=== PATIENT | male | born 1955 | race Caucasian/White ===

== ENCOUNTER → 2023-03-10 | Outpatient (CLI) | payer BC, MEDICARE ==
--- NOTE | 2023-03-11 20:28 | CTL ---
EXAMINATION TYPE: CT Low Dose Lung DATE OF EXAM ORDERED: 03/11/2023 HISTORY: Z12.2 Z87.891. Quit smoking 11 months ago, 40 pack year history. Lung cancer screening CT DLP: [address] CTDI: 2.6 mGy Automated exposure control for dose reduction was used. SCREENING VISIT: First screening visit COMPARISON: None TECHNIQUE: Low dose computed tomography scan was performed through the chest at 1 mm thick sections a nd reconstructed images in multiple planes at 1 mm and [address] DIAGNOSTIC QUALITY: Satisfactory FINDINGS: LUNG NODULES: Right midlung 2.2 mm nodule along the minor fissure favored represent an intrafissural lymph node. No clinically significant pulmonary nodules. LUNGS: COPD: Severity: Minimal Fibrosis: Severity: None Lymph nodes: None Other findings: None RIGHT PLEURAL SPACE: Effusion: None Calcification: None Thickening: None Pneumothorax: None LEFT PLEURAL SPACE: Effusion: None Calcification: None Thickening: None Pneumothorax: None HEART: Heart Size: Normal Coronary Calcification: Small Pericardial Effusion: None OTHER FINDINGS: Upper abdomen: None Bony thorax: No acute osseous abnormality. Mild degenerative changes of the thoracic spine. Supraclavicular region: None Other: None IMPRESSION: No clinically significant pulmonary nodules. CT LUNG RAD AND CT CHEST RECOMMENDATION: Lung-Rad 1 Negative: Continue annual screening with LDCT in 12 months. S Modifier (other clinically significant findings): None
== END | disposition home or self-care (01) ==
LOC: RADCTMAIN 13:56
PROVIDERS: ATTEND Family Medicine
DX: Z12.2 Encounter for screening for malignant neoplasm of respiratory organs (principal); Z87.891 Personal history of nicotine dependence
CPT/HCPCS: 71271

== ENCOUNTER 2024-05-13 03:59 | Emergency (ER) | payer BC, MEDICARE ==
[2024-05-13 04:15] VITALS: TEMP 97.7
--- NOTE | 2024-05-13 04:39 | ED ---
Abdominal Pain HPI <Gus Santana - Last Filed: 05/13/24 08:30> - General Source: patient, RN notes reviewed, old records reviewed Mode of arrival: ambulatory Limitations: no limitations - History of Present Illness MD Complaint: abdominal pain -: days(s) Location: diffuse Radiation: none Quality: cramping Consistency: constant Improves With: nothing, bowel movement <Gus Angel - Last Filed: 05/15/24 00:21> - General Chief Complaint: Abdominal Pain Stated Complaint: Abdominal Pain Time Seen by Provider: 05/13/24 04:03 - History of Present Illness Initial Comments: This is a 68-year-old male with positive abdominal pain positive nausea no vomiting, patient has had symptoms for a few days starting today also recently cramping if will clean with no prior history of significant abdominal pain, patient does have history of prostate, no abdominal surgeries. Patient was recently started on tadalafil thinks may be related to his abdominal pain (Gus Angel) - Related Data Allergies Allergy/AdvReac Type Severity Reaction Status Date / Time No Known Allergies Allergy Verified 05/13/24 04:15 Review of Systems ROS Other: All systems not noted in ROS Statement are negative. <Gus Santana - Last Filed: 05/13/24 08:30> ROS Other: All systems not noted in ROS Statement are negative. <Gus Angel - Last Filed: 05/15/24 00:21> ROS Statement: Those systems with pertinent positive or pertinent negative responses have been documented in the HPI. Past Medical History Past Medical History: No Reported History History of Any Multi-Drug Resistant Organisms: None Reported Past Surgical History: Joint Replacement Past Psychological History: No Psychological Hx Reported Smoking Status: Former smoker Past Alcohol Use History: None Reported Past Drug Use History: None Reported <Gus Angel - Last Filed: 05/15/24 00:21> General Exam Limitations: no limitations General appearance: alert, in no apparent distress, anxious Head exam: Present: atraumatic, normocephalic, normal inspection Eye exam: Present: normal appearance, PERRL, EOMI. Absent: scleral icterus, conjunctival injection, periorbital swelling ENT exam: Present: normal exam, mucous membranes moist Neck exam: Present: normal inspection. Absent: tenderness, meningismus, lymphadenopathy Respiratory exam: Present: normal lung sounds bilaterally. Absent: respiratory distress, wheezes, rales, rhonchi, stridor Cardiovascular Exam: Present: regular rate, normal rhythm, normal heart sounds. Absent: systolic murmur, diastolic murmur, rubs, gallop, clicks GI/Abdominal exam: Present: soft, normal bowel sounds. Absent: distended, tenderness, guarding, rebound, rigid Extremities exam: Present: normal inspection, full ROM, normal capillary refill. Absent: tenderness, pedal edema, joint swelling, calf tenderness Back exam: Present: normal inspection Neurological exam: Present: alert, oriented X3, CN II-XII intact Psychiatric exam: Present: normal affect, normal mood Skin exam: Present: warm, dry, intact, normal color. Absent: rash <Gus Angel - Last Filed: 05/15/24 00:21> Course <Gus Angel - Last Filed: 05/15/24 00:21> Vital Signs 05/13/24 05/13/24 04:12 08:53 Temperature 97.7 F Pulse Rate 78 76 Respiratory 16 17 Rate Blood Pressure 144/80 136/76 O2 Sat by Pulse 97 97 Oximetry - Reevaluation(s) Reevaluation #1: 05/13/24 04:32 Medical records reviewed (Gus Angel) Reevaluation #2: Symptoms improved here in the ER (Gus Angel) Reevaluation #3: Patient informed of results and questions answered (Gus Angel) Reevaluation #4: Was pt. sent in by a medical professional or institution (, PA, PRINCIPAL ASSOCIATE, urgent care, hospital, or assisted...) When possible be specific @ -no Did you speak to anyone other than the patient for history (EMS, parent, family, police, friend...)? What history was obtained from this source @ -no Did you review nursing and triage notes (agree or disagree)? Why? @ -agree Are old charts reviewed (outside hosp., previous admission, EMS record, old EKG, old radiological studies, urgent care reports/EKG's, assisted records)? Report findings @ -yes Differential Diagnosis (chest pain, altered mental status, abdominal pain women, abdominal pain men, vaginal bleeding, weakness, fever, dyspnea, syncope, headache, dizziness, GI bleed, back pain, seizure, CVA, palpatations, mental health, musculoskeletal)? @ -prior EKG interpreted by me (3pts min.). @ -yes X-rays interpreted by me (1pt min.). @ -no CT interpreted by me (1pt min.). @ -yes negative for acute disease U/S interpreted by me (1pt. min.). @ -yes negative for acute disease What testing was considered but not performed or refused? (CT, X-rays, U/S, labs)? Why? @ -none What meds were considered but not given or refused? Why? @ -none Did you discuss the management of the patient with other professionals (professionals i.e. , PA, PRINCIPAL ASSOCIATE, lab, RT, psych nurse, group social worker, arc and gas welder, teacher, fisheries technical officer, casey saw operator)? Give summary @ -no Was smoking cessation discussed for >3mins.? @ -no Was critical care preformed (if so, how long)? @ -no Were there social determinants of health that impacted care today? How? (Homelessness, low income, unemployed, alcoholism, drug addiction, tra nsportation, low edu. Level, literacy, decrease access to med. care, halfway, rehab)? @ -none Was there de-escalation of care discussed even if they declined (Discuss DNR or withdrawal of care, Hospice)? DNR status @ -no What co-morbidities impacted this encounter? (DM, HTN, Smoking, COPD, CAD, Cance r, CVA, ARF, Chemo, Hep., AIDS, mental health diagnosis, sleep apnea, morbid obesity)? @ -none Was patient admitted / discharged? Hospital course, mention meds given and route, prescriptions, significant lab abnormalities, going to OR and other pertinent info. @ - 68 male severe abdominal pain received started on tadalafil concern for that being the cause of his pain. Patient has persistent abdominal pain here in the emergency department but pain is improved. Patient will follow-up outpatien t surgery Discharge Undiagnosed new problem with uncertain prognosis? @ -no Drug Therapy requiring intensive monitoring for toxicity (Heparin, Nitro, Insulin, Cardizem)? @ -no Were any procedures done? @ -no Diagnosis/symptom? @ -Abdominal pain Acute, or Chronic, or Acute on Chronic? @ -Acute Uncomplicated (without systemic symptoms) or Complicated (systemic symptoms)? @ -Complicated Side effects of treatment? @ -no Exacerbation, Progression, or Severe Exacerbation? @ -exacerbation Poses a threat to life or bodily function? How? (Chest pain, [place], [place], pneumonia, PE, COPD, DKA, ARF, appy, cholecystitis, CVA, Diverticulitis, Homicidal, Suicidal, threat to staff... and all critical care pts) @ -no (Gus Angel) Reevaluation #5: Differential Abdominal Pain Men: Appendicitis, cholecystitis, diverticulosis, ischemic bowel, pancreatitis, h epatitis, UTI, gastroenteritis, AAA, incarcerated hernia, bowel obstruction, constipation, inflammatory bowel, hepatitis, peptic ulcer disease, splenic infarction, perforated viscus, testicular torsion, this is not meant to be an all-inclusive list (Gus Angel) Medical Decision Making - Lab Data Result diagrams: 05/13/24 04:47 05/13/24 04:47 <Gus Santana - Last Filed: 05/13/24 08:30> - Lab Data Result diagrams: 05/13/24 04:47 05/13/24 04:47 - Radiology Data Radiology results: report reviewed (CT abdomen pelvis negative for acute disease ultrasound positive for gallbladder disease), image reviewed <Gus Angel - Last Filed: 05/15/24 00:21> - Medical Decision Making Was patient admitted / discharged? Hospital course, mention meds given and route, prescriptions, significant lab abnormalities, going to OR and other pertinent info. @ -Patient was signed out to me by Dr. Angel at 7 AM. Patient's ultra sound was done interpreted by myself. Patient's ultrasound did show a slightly thickened gallbladder wall with cholelithiasis and patient also had a borderline common bile duct dilatation. I went into the room to reevaluate the patient he was pain-free I suggested he stay and get his gallbladder out because he said multiple of these episodes patient stated since he was pain-free he would rather wait because he already has an appointment to see Dr. Pacheco for colonoscopy. Patient was instructed to return if there is any further abdominal pain Undiagnosed new problem with uncertain prognosis? @ -No Drug Therapy requiring intensive monitoring for toxicity (Heparin, Nitro, Insulin, Cardizem)? @ -No Were any procedures done? @ -No Diagnosis/symptom? @ -Chronic cholecystitis, cholelithiasis Acute, or Chronic, or Acute on Chronic? @ -Acute Uncomplicated (without systemic symptoms) or Complicated (systemic symptoms)? @ -Complicated Side effects of treatment? @ -No Exacerbation, Progression, or Severe Exacerbation? @ -No Poses a threat to life or bodily function? How? (Chest pain, [place], [place], pneumonia, PE, COPD, DKA, ARF, appy, cholecystitis, CVA, Diverticulitis, Homicidal, Suicidal, threat to staff... and all critical care pts) @ -No (Gus Santana) 68 male severe abdominal pain received started on tadalafil concern for that being the cause of his pain. Patient has persistent abdominal pain here in the emergency department but pain is improved. Patient will follow-up outpatient surgery (Gus Angel) - Lab Data Lab Results 05/13/24 05/13/24 05/13/24 Range/Units 04:47 04:47 04:47 WBC 11.2 H (3.8-10.6) k/uL RBC 4.58 (4.30-5.90) m/uL Hgb 14.7 (13.0-17.5) gm/dL Hct 44.0 (39.0-53.0) % MCV 96.0 (80.0-100.0) fL MCH 32.1 (25.0-35.0) pg MCHC 33.5 (31.0-37.0) g/dL RDW 12.8 (11.5-15.5) % Plt Count 252 (150-450) k/uL MPV 7.5 Neutrophils % 81 % Lymphocytes % 11 % Monocytes % 6 % Eosinophils % 1 % Basophils % 0 % Neutrophils # 9.1 H (1.3-7.7) k/uL Lymphocytes # 1.3 (1.0-4.8) k/uL Monocytes # 0.6 (0-1.0) k/uL Eosinophils # 0.1 (0-0.7) k/uL Basophils # 0.0 (0-0.2) k/uL PT 10.2 (10.0-12.5) sec INR 0.9 (<1.2) APTT 25.2 (22.0-30.0) sec Sodium 135 L (137-145) mmol/L Potassium 4.1 (3.5-5.1) mmol/L Chloride 106 (98-107) mmol/L Carbon Dioxide 24 (22-30) mmol/L Anion Gap 5 mmol/L BUN 20 (9-20) mg/dL Creatinine 1.27 H (0.66-1.25) mg/dL Est GFR (CKD-EPI)AfAm 67 (>60 ml/min/1.73 sqM) Est GFR (CKD-EPI)NonAf 58 (>60 ml/min/1.73 sqM) Glucose 123 H (74-99) mg/dL Plasma Lactic Acid [place] (0.7-2.0) mmol/L Calcium 9.2 (8.4-10.2) mg/dL Total Bilirubin 0.9 (0.2-1.3) mg/dL AST 230 H (17-59) U/L ALT 143 H (4-49) U/L Alkaline Phosphatase 178 H (38-126) U/L Troponin I (0.000-0.034) ng/mL Total Protein 6.3 (6.3-8.2) g/dL Albumin 4.1 (3.5-5.0) g/dL Amylase 58 (30-110) U/L Lipase 179 (23-300) U/L Urine Color Urine Appearance (Clear) Urine pH (5.0-8.0) Ur Specific [place] (1.001-1.035) Urine Protein (Negative) Urine Glucose (UA) (Negative) Urine Ketones (Negative) Urine Blood (Negative) Urine Nitrite (Negative) Urine Bilirubin (Negative) Urine Urobilinogen (<2.0) mg/dL Ur Leukocyte Esterase (Negative) 05/13/24 05/13/24 05/13/24 Range/Units 04:47 04:47 05:45 WBC (3.8-10.6) k/uL RBC (4.30-5.90) m/uL Hgb (13.0-17.5) gm/dL Hct (39.0-53.0) % MCV (80.0-100.0) fL MCH (25.0-35.0) pg MCHC (31.0-37.0) g/dL RDW (11.5-15.5) % Plt Count (150-450) k/uL MPV Neutrophils % % Lymphocytes % % Monocytes % % Eosinophils % % Basophils % % Neutrophils # (1.3-7.7) k/uL Lymphocytes # (1.0-4.8) k/uL Monocytes # (0-1.0) k/uL Eosinophils # (0-0.7) k/uL Basophils # (0-0.2) k/uL PT (10.0-12.5) sec INR (<1.2) APTT (22.0-30.0) sec Sodium (137-145) mmol/L Potassium (3.5-5.1) mmol/L Chloride (98-107) mmol/L Carbon Dioxide (22-30) mmol/L Anion Gap mmol/L BUN (9-20) mg/dL Creatinine (0.66-1.25) mg/dL Est GFR (CKD-EPI)AfAm (>60 ml/min/1.73 sqM) Est GFR (CKD-EPI)NonAf (>60 ml/min/1.73 sqM) Glucose (74-99) mg/dL Plasma Lactic Acid [place] 1.4 (0.7-2.0) mmol/L Calcium (8.4-10.2) mg/dL Total Bilirubin (0.2-1.3) mg/dL AST (17-59) U/L ALT (4-49) U/L Alkaline Phosphatase (38-126) U/L Troponin I <0.012 (0.000-0.034) ng/mL Total Protein (6.3-8.2) g/dL Albumin (3.5-5.0) g/dL Amylase (30-110) U/L Lipase (23-300) U/L Urine Color Yellow Urine Appearance Clear (Clear) Urine pH 7.5 (5.0-8.0) Ur Specific [place] 1.021 (1.001-1.035) Urine Protein Negative (Negative) Urine Glucose (UA) Negative (Negative) Urine Ketones Negative (Negative) Urine Blood Negative (Negative) Urine Nitrite Negative (Negative) Urine Bilirubin Negative (Negative) Urine Urobilinogen <2.0 (<2.0) mg/dL Ur Leukocyte Esterase Negative (Negative) Disposition Is patient prescribed a controlled substance at d/c from ED?: No Time of Disposition: 08:32 <Gus Santana - Last Filed: 05/13/24 08:30> <Gus Angel - Last Filed: 05/15/24 00:21> Clinical Impression: Cholelithiasis with acute on chronic cholecystitis Disposition: HOME SELF-CARE Additional Instructions: Patient should return to the emergency department for any further pain. Patient should return if is any fevers. Referrals: Rodrigo Engle DO [Primary Care Provider] - 1-2 days Javier Pacheco MD [Medical Doctor] - 1-2 days
[2024-05-13] MEDS: SODIUM CHLORIDE 0.9% 1,000 ML IV STA (04:40)
[2024-05-13] MEDS: KETOROLAC 15 MG/ML 1 ML VIAL IVP STA (04:41)
[2024-05-13] MEDS: ONDANSETRON 4 MG/2 ML VIAL IVP STA (04:43)
[2024-05-13 04:59] LABS: Basophils % (A) 0 %; Eosinophils # (A) 0.1 k/uL (0-0.7); Eosinophils % (A) 1 %; HGB 14.7 gm/dL (13.0-17.5); Lymphocytes # (A) 1.3 k/uL (1.0-4.8); Lymphocytes % (A) 11 %; MCH 32.1 pg (25.0-35.0); MCHC 33.5 g/dL (31.0-37.0); Mean Platelet Volume 7.5; Monocytes # (A) 0.6 k/uL (0-1.0); Monocytes % (A) 6 %; Neutrophils # (A) 9.1 k/uL (1.3-7.7); Neutrophils % (A) 81 %; Platelet Count 252 k/uL (150-450); RBC 4.58 m/uL (4.30-5.90); RDW 12.8 % (11.5-15.5); WBC 11.2 k/uL (3.8-10.6)
[2024-05-13 05:09] LABS: INR 0.9 (<1.2); Partial Thromboplastin Time 25.2 sec (22.0-30.0); Prothrombin Time 10.2 sec (10.0-12.5)
[2024-05-13 05:20] LABS: ALT 143 U/L (4-49); AST 230 U/L (17-59); African American GFR (CKD) 67 (>60 ml/min/1.73 sqM); Albumin 4.1 g/dL (3.5-5.0); Alkaline Phosphatase 178 U/L (38-126); Amylase 58 U/L (30-110); Anion Gap 5 mmol/L; Blood Urea Nitrogen 20 mg/dL (9-20); Calcium 9.2 mg/dL (8.4-10.2); Carbon Dioxide 24 mmol/L (22-30); Chloride 106 mmol/L (98-107); Glucose 123 mg/dL (74-99); Lipase 179 U/L (23-300); Non-African American GFR(CKD) 58 (>60 ml/min/1.73 sqM); Potassium 4.1 mmol/L (3.5-5.1); Sodium 135 mmol/L (137-145); Total Bilirubin 0.9 mg/dL (0.2-1.3); Total Protein 6.3 g/dL (6.3-8.2)
[2024-05-13 05:57] LABS: Appearance,Urine Clear (Clear); Bilirubin,Urine Negative (Negative); Blood,Urine Negative (Negative); Color,Urine Yellow; Glucose,Urine (UA) Negative (Negative); Ketones,Urine Negative (Negative); Leukocyte Esterase,Urine Negative (Negative); Nitrite,Urine Negative (Negative); PH, Urine 7.5 (5.0-8.0); Protein,Urine Negative (Negative); Specific Gravity,Urine 1.021 (1.001-1.035); Urobilinogen,Urine <2.0 mg/dL (<2.0)
--- NOTE | 2024-05-13 07:14 | CT ---
EXAMINATION TYPE: CT abdomen pelvis w con DATE OF EXAM: 05/13/2024 COMPARISON: None HISTORY: Pt. c/o abdominal pain x1 day - denies any N/V. Pt. states he started new medication (tadala pili) x2 days ago Automated exposure control for dose reduction was used. TECHNIQUE: Helical acquisition of images was performed from the lung bases through the pelvis. CONTRAST: Performed without Oral Contrast and with IV Contrast, patient injected with 80 mL of Isovue 300. FINDINGS: The lung bases are clear. There is a single small noncalcified gallstone. There is no biliary ductal dilatation. There is no focal mass or organomegaly involving the liver, pancreas, spleen or adrenal glands. There is no solid renal mass or hydronephrosis and there is homogeneous contrast enhancement of the r enal parenchyma. The caliber the abdominal aorta is normal is no retroperitoneal adenopathy or hemorrhage. The bowel loops are normal in caliber and there is no evidence of dilatation or obstruction. No infla mmatory changes are identified in the bowel wall or mesentery. There is no free intraperitoneal air or fluid. No pelvic mass, free fluid, abscess or adenopathy. There is mild prostatic hypertrophy There are no focal osseous lesions. Incidental note is made of a 3.2 cm lipoma in the left abdominal rectus muscle. IMPRESSION: 1. Single noncalcified gallstone. No gallbladder distention, wall thickening or pericholecystic fluid . 2. Mild prostatic hypertrophy. 3. No acute inflammatory changes within the abdomen or pelvis. [facility], , 05/13/2024 7:12 AM
[2024-05-13] MEDS: HYDROmorphone 0.5 MG/0.5 ML SYRINGE IVP STA (07:34)
--- NOTE | 2024-05-13 07:49 | US ---
EXAMINATION TYPE: US gallbladder DATE OF EXAM: 05/13/2024 COMPARISON: NONE CLINICAL INDICATION: Male, 68 years old with history of pain; Pain TECHNIQUE: Grayscale and color Doppler imaging of the right upper quadrant was performed. FINDINGS: EXAM MEASUREMENTS: Liver Length: 16.3 cm Gallbladder Wall: .4 cm CBD: .9 cm Right Kidney: 10.8 x 4.7 x 5.5 cm LATENT PRINT EXAMINER NOTES: Pancreas: Obscured by bowel gas Liver: wnl Gallbladder: 10.2 cm stones visualized thickened wall. Evidence for sonographic Nicholson's sign: no CBD: Dilated Right Kidney: No hydronephrosis or masses seen IMPRESSION: Cholelithiasis with minimal gallbladder wall thickening and mildly dilated bile duct. The sonographic Nicholson sign is negative. There is no pericholecystic fluid. The findings are consistent with chronic cholelithiasis. [facility], Workstation: [id number] 05/13/2024 7:47 AM
[2024-05-13 08:54] VITALS: BP 136/76; PULSE 76; RESP 17
== END 2024-05-13 08:54 | disposition home or self-care (01) ==
LOC: EC 03:59
CPT/HCPCS: 36415; 74177; 76705; 80053; 81003; 82150; 83605; 83690; 84484; 85025; 85610; 85730; 96361; 96374; 96375; 99284

== ENCOUNTER → 2024-05-17 | Outpatient (CLI) | payer BC, MEDICARE ==
--- NOTE | 2024-05-17 09:51 | CTL ---
EXAMINATION TYPE: CT Low Dose Lung DATE OF EXAM ORDERED: 05/17/2024 HISTORY: Nicotine dependence, quit smoking 03/23, 40 pack-year history. Lung cancer screening CT DLP: [address] CTDI: 2.6 mGy Automated exposure control for dose reduction was used. SCREENING VISIT: Second screening visit COMPARISON: CT Low Dose Lung 03/10/2023 TECHNIQUE: Low dose computed tomography scan was performed through the chest at 1 mm thick sections a nd reconstructed images in multiple planes at 1 mm and [address] DIAGNOSTIC QUALITY: Satisfactory FINDINGS: LUNG NODULES: Stable peripheral right lower lobe 4 mm pulmonary nodule retrospectively. Stable right midlung 2.2 mm nodule along the minor fissure. No new or enlarging pulmonary nodules. LUNGS: COPD: Severity: Minimal Fibrosis: Severity: None Lymph nodes: None Other findings: None RIGHT PLEURAL SPACE: Effusion: None Calcification: None Thickening: None Pneumothorax: None LEFT PLEURAL SPACE: Effusion: None Calcification: None Thickening: None Pneumothorax: None HEART: Heart Size: Normal Coronary Calcification: Small Pericardial Effusion: None OTHER FINDINGS: Upper abdomen: None Bony thorax: No acute osseous abnormality. Multilevel degenerative changes of the thoracic spine. Par tial visualization of right shoulder arthroplasty changes. Supraclavicular region: None Other: None IMPRESSION: Stable small pulmonary nodules. No new or enlarging pulmonary nodules. CT LUNG RAD AND CT CHEST RECOMMENDATION: Lung-Rad 2 Benign Appearance or Behavior: Continue annual sc reening with LDCT in 12 months. S Modifier (other clinically significant findings): None [facility], , 05/17/2024 9:48 AM
== END ==
LOC: RADCTMAIN 08:38
PROVIDERS: ATTEND Internal Medicine
CPT/HCPCS: 71271

== ENCOUNTER 2024-07-05 14:21 | Emergency (ER) | payer BC, MEDICARE ==
[2024-07-05 14:34] VITALS: TEMP 98.5
--- NOTE | 2024-07-05 14:48 | ED ---
General Adult HPI - General Chief complaint: Abdominal Pain Stated complaint: abd pain/post op colonoscopy Time Seen by Provider: 07/05/24 14:35 Source: patient, RN notes reviewed, old records reviewed Mode of arrival: ambulatory Limitations: no limitations - History of Present Illness Initial comments: This is a 68-year-old male who presents to the emergency department stating he has some upper abdominal pain. Patient states is consistent with the pain he has had from his gallbladder in the past. Patient states he had a colonoscopy today and the pain came on after he went home and he spoke with Dr. Tara Pacheco wanted to come to the hospital. Patient states he was a little nauseous earlier but no vomiting. Patient Nu[place] any fever chills. Patient states the pain is not that bad currently. Patient denies any chest pain or difficulty marian athing. - Related Data Home Medications Medication Instructions Recorded Confirmed Terazosin [Hytrin] 1 mg PO HS 07/05/24 07/05/24 clonazePAM [KlonoPIN] 0.5 mg PO BID PRN 07/05/24 07/05/24 tadalafiL 5 mg PO HS 07/05/24 07/05/24 Allergies Allergy/AdvReac Type Severity Reaction Status Date / Time No Known Allergies Allergy Verified 07/05/24 16:08 Review of Systems ROS Statement: Those systems with pertinent positive or pertinent negative responses have been documented in the HPI. ROS Other: All systems not noted in ROS Statement are negative. Past Medical History Past Medical History: No Reported History History of Any Multi-Drug Resistant Organisms: None Reported Past Surgical History: Joint Replacement Past Psychological History: No Psychological Hx Reported Smoking Status: Former smoker Past Alcohol Use History: None Reported Past Drug Use History: None Reported General Exam - General Exam Comments Initial Comments: GENERAL: Patient is well-developed and well-nourished. Patient is nontoxic and well- hydrated and is in mild distress. ENT: Neck is soft and supple. No significant lymphadenopathy is noted. Oropharynx is clear. Moist mucous membranes. Neck has full range of motion without eliciting any pain. EYES: The sclera were anicteric and conjunctiva were pink and moist. Extraocular movements were intact and pupils were equal round and reactive to light. Eyelids were unremarkable. PULMONARY: Unlabored respirations. Good breath sounds bilaterally. No audible rales rhonchi or wheezing was noted. CARDIOVASCULAR: There is a regular rate and rhythm without any murmurs gallops or rubs. ABDOMEN: Patient has minimal right upper quadrant tenderness no rebound SKIN: Skin is clear with no lesions or rashes and otherwise unremarkable. NEUROLOGIC: Patient is alert and oriented x3. Cranial nerves II through XII are grossly intact. Motor and sensory are also intact. Normal speech, volume and content. Symmetrical smile. MUSCULOSKELETAL: Normal extremities with adequate strength and full range of motion. LYMPHATICS: No significant lymphadenopathy is noted PSYCHIATRIC: Normal psychiatric evaluation. Limitations: no limitations Course Vital Signs 07/05/24 14:32 Temperature 98.5 F Pulse Rate 72 Respiratory 20 Rate O2 Sat by Pulse 97 Oximetry Medical Decision Making - Medical Decision Making EKG is interpreted by myself but EKG shows a sinus rhythm with occasional PVC at 71 bpm MS interval 167 QRS 105 QT interval 372 QTc is 390 5 repeat EKG shows no ST segment elevation or depression. Was pt. sent in by a medical professional or institution (, PA, STRAP MACHINE OPERATOR, urgent care, hospital, or residential...) When possible be specific @ -No Did you speak to anyone other than the patient for history (EMS, parent, family, police, friend...)? What history was obtained from this source @ -No Did you review nursing and triage notes (agree or disagree)? Why? @ -I reviewed and agree with nursing and triage notes Were old charts reviewed (outside hosp., previous admission, EMS record, old EKG, old radiological studies, urgent care reports/EKG's, residential records)? Report findings @ -No old charts were reviewed Differential Diagnosis? @ -Differential Abdominal Pain Men: Appendicitis, cholecystitis, diverticulosis, ischemic bowel, pancreatitis, hepatitis, UTI, gastroenteritis, AAA, incarcerated hernia, bowel obstruction, constipation, inflammatory bowel, hepatitis, peptic ulcer disease, splenic infarction, perforated viscus, testicular torsion, this is not meant to be an all-inclusive list EKG interpreted by me (3pts min.). @ -As above X-rays interpreted by me (1pt min.). @ -None done CT interpreted by me (1pt min.). @ -CT of the abdomen pelvis without contrast showed no acute abnormality U/S interpreted by me (1pt. min.). @ -None done What testing was considered but not performed or refused? (CT, X-rays, U/S, labs)? Why? @ -None What meds were considered but not given or refused? Why? @ -None Did you discuss the management of the patient with other professionals (professionals i.e. , PA, STRAP MACHINE OPERATOR, lab, RT, psych nurse, health care social worker, injection molding engineer, teacher, senior major gifts officer, case technician)? Give summary @ -I spoke with Dr. Pacheco he was in agreement with the CT scan being ordered and wanted the patient to follow-up with him if there were no new findings Was smoking cessation discussed for >3mins.? @ -No Was critical care preformed (if so, how long)? @ -No Were there social determinants of health that impacted care today? How? (Homelessness, low income, unemployed, alcoholism, drug addiction, transportation, low edu. Level, literacy, decrease access to med. care, snf, rehab)? @ -No Was there de-escalation of care discussed even if they declined (Discuss DNR or withdrawal of care, Hospice)? DNR status @ -No What co-morbidities impacted this encounter? (DM, HTN, Smoking, COPD, CAD, Cancer, CVA, ARF, Chemo, Hep., AIDS, mental health diagnosis, sleep apnea, morbid obesity)? @ -None Was patient admitted / discharged? Hospital course, mention meds given and route, prescriptions, significant lab abnormalities, going to OR and other pertinent info. @ -Lab work was within normal range. CAT scan showed no acute normality. I went back and reevaluated the patient he was feeling much better and he will follow-up with Dr. Pacheco as an outpatient. Undiagnosed new problem with uncertain prognosis? @ -No Drug Therapy requiring intensive monitoring for toxicity (Heparin, Nitro, Insul in, Cardizem)? @ -No Were any procedures done? @ -No Diagnosis/symptom? @ -Abdominal pain Acute, or Chronic, or Acute on Chronic? @ -Acute Uncomplicated (without systemic symptoms) or Complicated (systemic symptoms)? @ -Complicated Side effects of treatment? @ -No Exacerbation, Progression, or Severe Exacerbation? @ -No Poses a threat to life or bodily function? How? (Chest pain, [place], NC, pneumonia, PE, COPD, DKA, ARF, appy, cholecystitis, CVA, Diverticulitis, Homicidal, Suicidal, threat to staff... and all critical care pts) @ -No - Lab Data Result diagrams: 07/05/24 14:57 07/05/24 14:57 Lab Results 07/05/24 07/05/24 Range/Units 14:57 14:57 WBC 6.3 (3.8-10.6) k/uL RBC 4.92 (4.30-5.90) m/uL Hgb 15.6 (13.0-17.5) gm/dL Hct 46.1 (39.0-53.0) % MCV 93.7 (80.0-100.0) fL MCH 31.7 (25.0-35.0) pg MCHC 33.8 (31.0-37.0) g/dL RDW 12.5 (11.5-15.5) % Plt Count 266 (150-450) k/uL MPV 7.5 Neutrophils % 69 % Lymphocytes % 22 % Monocytes % 6 % Eosinophils % 1 % Basophils % 1 % Neutrophils # 4.3 (1.3-7.7) k/uL Lymphocytes # 1.4 (1.0-4.8) k/uL Monocytes # 0.4 (0-1.0) k/uL Eosinophils # 0.1 (0-0.7) k/uL Basophils # 0.0 (0-0.2) k/uL Sodium 136 L (137-145) mmol/L Potassium 4.3 (3.5-5.1) mmol/L Chloride 108 H (98-107) mmol/L Carbon Dioxide 20 L (22-30) mmol/L Anion Gap 8 mmol/L BUN 17 (9-20) mg/dL Creatinine 0.92 (0.66-1.25) mg/dL Est GFR (CKD-EPI)AfAm >90 (>60 ml/min/1.73 sqM) Est GFR (CKD-EPI)NonAf 86 (>60 ml/min/1.73 sqM) Glucose 121 H (74-99) mg/dL Calcium 8.9 (8.4-10.2) mg/dL Total Bilirubin 0.9 (0.2-1.3) mg/dL AST 77 H (17-59) U/L ALT 40 (4-49) U/L Alkaline Phosphatase 67 (38-126) U/L Total Protein 6.8 (6.3-8.2) g/dL Albumin 4.3 (3.5-5.0) g/dL Amylase 56 (30-110) U/L Lipase 213 (23-300) U/L Disposition Clinical Impression: Abdominal pain Disposition: HOME SELF-CARE Instructions (If sedation given, give patient instructions): Abdominal Pain (ED) Is patient prescribed a controlled substance at d/c from ED?: No Referrals: Rodrigo Engle DO [Primary Care Provider] - 1-2 days Time of Disposition: 16:34
[2024-07-05] MEDS: SODIUM CHLORIDE 0.9% 500 ML 500 ML IV STA (15:06)
[2024-07-05 15:14] LABS: Basophils % (A) 1 %; Eosinophils # (A) 0.1 k/uL (0-0.7); Eosinophils % (A) 1 %; HCT 46.1 % (39.0-53.0); HGB 15.6 gm/dL (13.0-17.5); Lymphocytes # (A) 1.4 k/uL (1.0-4.8); Lymphocytes % (A) 22 %; MCH 31.7 pg (25.0-35.0); MCHC 33.8 g/dL (31.0-37.0); MCV 93.7 fL (80.0-100.0); Mean Platelet Volume 7.5; Monocytes # (A) 0.4 k/uL (0-1.0); Monocytes % (A) 6 %; Neutrophils # (A) 4.3 k/uL (1.3-7.7); Neutrophils % (A) 69 %; Platelet Count 266 k/uL (150-450); RBC 4.92 m/uL (4.30-5.90); RDW 12.5 % (11.5-15.5); WBC 6.3 k/uL (3.8-10.6)
[2024-07-05 15:29] LABS: ALT 40 U/L (4-49); AST 77 U/L (17-59); African American GFR (CKD) >90 (>60 ml/min/1.73 sqM); Albumin 4.3 g/dL (3.5-5.0); Alkaline Phosphatase 67 U/L (38-126); Amylase 56 U/L (30-110); Anion Gap 8 mmol/L; Blood Urea Nitrogen 17 mg/dL (9-20); Calcium 8.9 mg/dL (8.4-10.2); Carbon Dioxide 20 mmol/L (22-30); Chloride 108 mmol/L (98-107); Glucose 121 mg/dL (74-99); Lipase 213 U/L (23-300); Non-African American GFR(CKD) 86 (>60 ml/min/1.73 sqM); Potassium 4.3 mmol/L (3.5-5.1); Sodium 136 mmol/L (137-145); Total Bilirubin 0.9 mg/dL (0.2-1.3); Total Protein 6.8 g/dL (6.3-8.2)
--- NOTE | 2024-07-05 15:43 | CT ---
EXAMINATION TYPE: CT abdomen pelvis wo con DATE OF EXAM: 07/05/2024 3:29 PM COMPARISON: None. CLINICAL INDICATION: Male, 68 years old with history of abdominal pain, Pt c.o of epigastric pain, co lonoscopy this morning. Pt reports mild n/v. TECHNIQUE: Axial images were obtained from above the diaphragm to the pubic rami in the axial plane a t 5 mm thick sections. Reconstructed images are reviewed on the computer in the coronal plane. CONTRAST: mL of . Study performed without Oral Contrast DLP: 962.4 mGycm, Automated exposure control for dose reduction was used. FINDINGS: Limited CT sections are obtained the lung bases. There is a 0.5 cm nodule in the lateral right lung base. Image 4. CT ABDOMEN: There is a lipoma within the left rectus abdominis muscle, image 49. Liver: Normal Spleen: Normal Pancreas: Normal Adrenal glands: The adrenal glands are normal. Gallbladder: Normal Kidneys: No masses are evident. No hydronephrosis is present. No cysts are present. No renal stone s evident. Aorta: Vascular calcification is within the aorta. Inferior vena cava: Normal. CT PELVIS: No free fluid within the abdomen or pelvis. No free air is evident. Loops of bowel within the abdomen and pelvis are normal. Colon is not distended. This study is wit hout oral contrast limiting bowel evaluation Appendix: Normal as visualized. Urinary bladder: Some mild diffuse anterior urinary bladder wall thickening may be present. Genitourinary structures: Prostate is prominent. Osseous structures: No suspicious lytic or sclerotic lesions. IMPRESSION: 1. No suspicious acute abnormality. 2. There may be some mild diffuse wall thickening of the anterior urinary bladder. Consider follow-up . 3. Punctate nodule within the lateral right lung base. Follow-up recommended with CT chest. [facility], Workstation: [facility], 07/05/2024 3:40 PM
[2024-07-05 17:00] VITALS: BP 151/82; PULSE 70; RESP 18
== END 2024-07-05 17:00 | disposition home or self-care (01) ==
LOC: EC 14:21
DX: R10.11 Right upper quadrant pain (principal); Z87.891 Personal history of nicotine dependence
CPT/HCPCS: 36415; 74176; 80053; 82150; 83690; 85025; 93005; 96360; 96361; 99284